=== PATIENT | female | born 2000 | race African-American/Black ===

== ENCOUNTER 2023-05-01 11:24 | Emergency (ER) | payer MEDICAID ==
[~2023-05-01] VITALS: Ht 162.6 cm; Wt 137.0 kg
[2023-05-01] MEDS ORDERED: PROPOFOL 200MG/20ML VIAL IV ONE (12:00)
[2023-05-01] MEDS ORDERED: FENTANYL CITRATE/PF 50MCG/ML 2ML VIAL IV ONE (12:00)
[2023-05-01] MEDS ORDERED: KETOROLAC 60MG/2ML VIAL IM ONE (12:00)
[2023-05-01 13:57] VITALS: O2SAT 99
[2023-05-01 14:00] VITALS: BP 118/72; PULSE 84; RESP 18; TEMP 98
[2023-05-01] MEDS ORDERED: HYDR-4001 MT (14:13)
[2023-05-01] MEDS ORDERED: IBUP-2030 MT (14:13)
== END 2023-05-01 16:06 | disposition home or self-care (01) ==
LOC: ER 11:58
DX: S93.04XA Dislocation of right ankle joint, initial encounter (principal); Y93.39 Activity, other involving climbing, rappelling and jumping off; Y93.89 Activity, other specified; Y92.89 Other specified places as the place of occurrence of the external cause; Y99.8 Other external cause status
CPT/HCPCS: 73600; 27840; 99152; 99285; J3010; J1885; J2704; Z7610 ×4